=== PATIENT | male | born 1990 | race Caucasian/White ===

== ENCOUNTER 2017-11-09 15:49 | Emergency (ER) | payer SELFPAY | END 2017-11-09 16:20 | disposition home or self-care (01) | LOC: BURERS 15:49 | DX: J01.90 Acute sinusitis, unspecified (principal); F90.9 Attention-deficit hyperactivity disorder, unspecified type; F17.210 Nicotine dependence, cigarettes, uncomplicated | CPT/HCPCS: 99283 ==